=== PATIENT | female | born 1955 | race Caucasian/White ===

== ENCOUNTER 2023-12-25 08:49 | Emergency (ER) | payer MEDICARE ==
[~2023-12-25] VITALS: Ht 162.6 cm; Wt 82.5 kg
[2023-12-25 10:03] LABS: BASOPHILS % (AUTO) 0.2 % (0-1); EOSINOPHILS % (AUTO) 0.7 % (0-6); HEMATOCRIT 44.3 % (35.0-45.0); HEMOGLOBIN 14.4 g/dl (12.0-16.0); LYMPHOCYTES # (AUTO) 1.7 X10'3 (1.1-4.8); LYMPHOCYTES % (AUTO) 24.4 % (21-51); MEAN CORPUSCULAR HEMOGLOBIN 31.4 PG (27.0-31.0); MEAN CORPUSCULAR HGB CONC 32.5 g/dL (33.0-36.5); MEAN CORPUSCULAR VOLUME 96.5 FL (78-98); MEAN PLATELET VOLUME 7.6 FL (7.4-10.4); MONOCYTES # (AUTO) 0.6 X10'3 (0-0.9); MONOCYTES % (AUTO) 7.9 % (2-12); NEUTROPHILS # (AUTO) 4.7 X10'3 (1.8-7.7); NEUTROPHILS % (AUTO) 66.8 % (42-75); PLATELET COUNT 221 X10'3 (140-440); RED BLOOD COUNT 4.59 X10'6 (4.20-5.60); RED CELL DISTRIBUTION WIDTH 12.9 % (11.5-14.5)
[2023-12-25 10:26] LABS: ALANINE AMINOTRANSFERASE 27 U/L (12-78); ALBUMIN 3.8 G/DL (3.4-5.0); ALBUMIN/GLOBULIN RATIO 1.1 (1.1-1.5); ALKALINE PHOSPHATASE 180 IU/L (46-116); ANION GAP -4 (8-16); ASPARTATE AMINO TRANSFERASE 25 U/L (10-37); BILIRUBIN,TOTAL 0.4 MG/DL (0.1-1.0); BLOOD UREA NITROGEN 11 MG/DL (7-18); CALCIUM 9.4 MG/DL (8.5-10.1); CHLORIDE 101 MMOL/L (99-107); CREATININE 0.61 MG/DL (0.40-0.90); GLUCOSE 118 MG/DL (70-104); POTASSIUM 3.7 MMOL/L (3.5-5.1); PRO BRAIN NATRIURETIC PEPTIDE 281 PG/ML (0-125); SODIUM 144 MMOL/L (135-145); TOTAL PROTEIN 7.2 G/DL (6.4-8.2); eCRCL 74 ML/MIN; eGFR > 90 ML/MIN
[2023-12-25 10:33] LABS: TOTAL CARBON DIOXIDE 47.2 MMOL/L (24-32)
[2023-12-25] MEDS: furosemide 40mg/4ml inj IV ONE (11:35)
[2023-12-25] MEDS: diltiazem 5mg/ml 5ml inj. IV ONE ×2 (11:36→14:15)
[2023-12-25] MEDS ORDERED: FURO-150 PO (16:12)
[2023-12-25] MEDS ORDERED: CARSR60C PO (16:34)
[2023-12-25] MEDS ORDERED: ALBU18HF2 INH (16:36)
[2023-12-25 17:02] VITALS: BP 152/70; PULSE 118; RESP 28; TEMP 98.7; O2SAT 96
== END 2023-12-25 17:05 | disposition home or self-care (01) ==
LOC: ER 08:50
DX: I11.0 Hypertensive heart disease with heart failure (principal); I50.9 Heart failure, unspecified; J44.9 Chronic obstructive pulmonary disease, unspecified; Z88.8 Allergy status to other drugs, medicaments and biological substances; Z79.899 Other long term (current) drug therapy
CPT/HCPCS: 36415; 71045; 80053; 83880; 84484; 85025; 93005; 96374; 96375; 96376; 99285; C8929; J1940; J3490; 93306

== ENCOUNTER 2024-01-30 11:36 | Inpatient (IN) | payer MEDICARE ==
[~2024-01-30] VITALS: Ht 162.6 cm; Wt 86.4 kg
[~2024-01-30 11:36] MED LIST: ALBU18HF2 INH; FURO-150 PO
[2024-01-30] MEDS: normal saline 1000ml 1,000 ML IV ONE (12:23)
[2024-01-30 12:36] LABS: BASOPHILS % (AUTO) 0.3 % (0-1); EOSINOPHILS % (AUTO) 0.6 % (0-6); HEMATOCRIT 41.6 % (35.0-45.0); HEMOGLOBIN 13.6 g/dl (12.0-16.0); LYMPHOCYTES # (AUTO) 2.1 X10'3 (1.1-4.8); MEAN CORPUSCULAR HEMOGLOBIN 31.7 PG (27.0-31.0); MEAN CORPUSCULAR HGB CONC 32.6 g/dL (33.0-36.5); MEAN CORPUSCULAR VOLUME 97.2 FL (78-98); MEAN PLATELET VOLUME 7.9 FL (7.4-10.4); MONOCYTES # (AUTO) 0.6 X10'3 (0-0.9); MONOCYTES % (AUTO) 8.3 % (2-12); NEUTROPHILS # (AUTO) 4.8 X10'3 (1.8-7.7); NEUTROPHILS % (AUTO) 62.8 % (42-75); PLATELET COUNT 215 X10'3 (140-440); RED BLOOD COUNT 4.28 X10'6 (4.20-5.60); RED CELL DISTRIBUTION WIDTH 13.1 % (11.5-14.5); WHITE BLOOD COUNT 7.6 X10'3 (4.5-11.0)
[2024-01-30 12:50] LABS: ALANINE AMINOTRANSFERASE 25 U/L (12-78); ALBUMIN 3.8 G/DL (3.4-5.0); ALBUMIN/GLOBULIN RATIO 1.2 (1.1-1.5); ALKALINE PHOSPHATASE 180 IU/L (46-116); ASPARTATE AMINO TRANSFERASE 14 U/L (10-37); BILIRUBIN,TOTAL 0.4 MG/DL (0.1-1.0); BLOOD UREA NITROGEN 11 MG/DL (7-18); BUN/CREATININE RATIO 15.9 (10.0-20.0); CALCIUM 9.2 MG/DL (8.5-10.1); CHLORIDE 96 MMOL/L (99-107); CREATININE 0.69 MG/DL (0.40-0.90); GLUCOSE 123 MG/DL (70-104); POTASSIUM 3.9 MMOL/L (3.5-5.1); SODIUM 143 MMOL/L (135-145); TOTAL PROTEIN 7.1 G/DL (6.4-8.2); eCRCL 66 ML/MIN; eGFR 84 ML/MIN
[2024-01-30 12:52] LABS: ANION GAP -3 (8-16)
[2024-01-30 12:55] LABS: TOTAL CARBON DIOXIDE > 50 MMOL/L (24-32)
[2024-01-30 13:11] LABS: BILIRUBIN,URINE NEGATIVE (Neg); CLARITY,URINE CLEAR (Clear); COLOR,URINE YELLOW (Yellow); GLUCOSE, URINE NEGATIVE (Neg); KETONES,URINE NEGATIVE (Neg); LEUKOCYTE ESTERASE ,URINE NEGATIVE (Neg); NITRITES, URINE NEGATIVE (Neg); OCCULT BLOOD,URINE TRACE-INTACT (Neg); PH,URINE 7.5 (4.8-8.0); PROTEIN,URINE TRACE mg/dl (Neg)
[2024-01-30 13:15] LABS: UA COLLECTION TYPE STRAIGHT CATH
[2024-01-30 13:19] LABS: BACTERIA,URINE NONE SEEN /HPF (Neg); MUCUS STRANDS NONE SEEN /LPF (Neg); SQUAMOUS EPITHELIAL CELL,UR FEW /LPF (FEW); WBC,URINE 0-4 /HPF (0-4)
[2024-01-30 13:20] LABS: RENAL CELLS, URINE FEW /HPF
[2024-01-30 13:22] LABS: CREATINE KINASE 53 U/L (26-192)
[2024-01-30] MEDS ORDERED: magnesium hydroxide 30ml (MOM) UD suspension PO PRN (13:50)
[2024-01-30] MEDS ORDERED: potassium Cl 20 mEq SR tablet PO PRN ×2 (13:50)
[2024-01-30] MEDS ORDERED: magnesium sulf-water 2g/50mL 50 ML IV PRN (13:50)
[2024-01-30] MEDS ORDERED: mag hydrox/Alum hydrox/simeth 30ml oral suspension PO PRN (13:50)
[2024-01-30] MEDS ORDERED: potassium Cl 40MEQ/1/2NS 520ml 520 ML IV PRN (13:50)
[2024-01-30] MEDS ORDERED: magnesium sulf-water 4G/100mL 100 ML IV PRN (13:50)
[2024-01-30] MEDS ORDERED: ondansetron/PF 4mg/2ml inj IV PRN ×2 (13:50→17:10)
[2024-01-30 14:14] LABS: MAGNESIUM 2.1 MG/DL (1.5-2.4)
[2024-01-30 14:42] LABS: ABG BASE EXCESS 8.8 mmol/L (-2.0-3.0); ABG HCO3 39.4 mmol/L (21.0-28.0); ABG OXYGEN SATURATION 96.6 % (94.0-98.0); ABG PCO2 (T) 89.1 mmHg (32.0-45.0); ABG PH (T) 7.263 (7.350-7.450); ABG PO2 (T) 92.5 mmHg (83.0-108.0); FCOHb 0.1 % (0.5-1.5); FHHb 3.4 % (0.0-5.0); FLOW 4 L/min; FMetHb 0.1 % (0.0-1.5); FO2Hb 96.4 % (94.0-98.0); MODE NASAL CANNULA; TOTAL HEMOGLOBIN 13.5 G/dl (12.0-16.0)
[2024-01-30] MEDS: metoprolol tartrate 1mg/ml inj IV SCH (15:00)
[2024-01-30 15:04] VITALS: PULSE 110; RESP 21; O2SAT 95
[2024-01-30] MEDS: diltiazem 5mg/ml 5ml inj. IV ONE (15:15)
[2024-01-30] MEDS: methylPREDNISolone sod succ 125mg/2ml vial IV ONE (15:16)
[2024-01-30 16:27] LABS: D-DIMER 0.28 MG/L FEU (0-0.50)
[2024-01-30 16:52] LABS: ABG BASE EXCESS 14.6 mmol/L (-2.0-3.0); ABG HCO3 45.5 mmol/L (21.0-28.0); ABG OXYGEN SATURATION 91.6 % (94.0-98.0); ABG PH (T) 7.298 (7.350-7.450); ABG PO2 (T) 62.3 mmHg (83.0-108.0); ALLEN'S TEST POSITIVE; FCOHb 0.2 % (0.5-1.5); FHHb 8.4 % (0.0-5.0); FMetHb 0.1 % (0.0-1.5); FO2Hb 91.3 % (94.0-98.0); MODE MASK - BIPAP; TOTAL HEMOGLOBIN 13.3 G/dl (12.0-16.0)
[2024-01-30 17:05] VITALS: PULSE 89; RESP 27; O2SAT 98
[2024-01-30] MEDS ORDERED: HYDROcodone/acetaminophen 5mg/325mg tablet PO PRN (17:10)
[2024-01-30] MEDS ORDERED: nitroGLYCERIN 0.4mg SUBLingual tab SL PRN (17:10)
[2024-01-30] MEDS ORDERED: normal saline 1000ml 1,000 ML IV SCH (17:10)
[2024-01-30] MEDS ORDERED: HYDROcodone/acetaminophen 10/325mg tab PO PRN (17:10)
[2024-01-30] MEDS ORDERED: OXAZEpam 15mg capsule PO PRN (17:10)
[2024-01-30] MEDS ORDERED: proCHLORperazine 10 MG/2 ml inj IV PRN (17:10)
[2024-01-30] MEDS: LORazepam 2 mg/ml vial IV ONE (17:34)
[2024-01-30 18:09] LABS: ABG BASE EXCESS 15.3 mmol/L (-2.0-3.0); ABG HCO3 45.4 mmol/L (21.0-28.0); ABG OXYGEN SATURATION 96.1 % (94.0-98.0); ABG PCO2 (T) 87.7 mmHg (32.0-45.0); ABG PH (T) 7.332 (7.350-7.450); ABG PO2 (T) 78.8 mmHg (83.0-108.0); ALLEN'S TEST POSITIVE; FCOHb 0.3 % (0.5-1.5); FHHb 3.9 % (0.0-5.0); FMetHb 0.1 % (0.0-1.5); FO2Hb 95.7 % (94.0-98.0); MODE MASK - BIPAP; RESPIRATORY RATE 26 b/min; TOTAL HEMOGLOBIN 13.3 G/dl (12.0-16.0)
[2024-01-30] MEDS: normal saline 1000ml 1,000 ML IV SCH (18:13)
[2024-01-30 19:16] VITALS: PULSE 93; RESP 24; O2SAT 93
[2024-01-30] MEDS: docusate sod 100mg capsule PO SCH (20:00)
[2024-01-30] MEDS: K and/or MAG REPLACEMENT MC SCH (20:00)
[2024-01-30] MEDS: apixaban 5mg tablet PO SCH (20:32)
[2024-01-30] MEDS: heparin, porcine 5000 units/ml vial SQ SCH (20:33)
[2024-01-30 21:42] LABS: ABG BASE EXCESS 16.6 mmol/L (-2.0-3.0); ABG HCO3 47.9 mmol/L (21.0-28.0); ABG OXYGEN SATURATION 96.8 % (94.0-98.0); ABG PCO2 (T) 97.9 mmHg (32.0-45.0); ABG PH (T) 7.307 (7.350-7.450); ABG PO2 (T) 92.2 mmHg (83.0-108.0); ALLEN'S TEST Modified; FCOHb 0.2 % (0.5-1.5); FHHb 3.2 % (0.0-5.0); FO2Hb 96.6 % (94.0-98.0); MODE BiPAP; RESPIRATORY RATE 26 b/min; TOTAL HEMOGLOBIN 13.7 G/dl (12.0-16.0)
[2024-01-30 22:45] LABS: BILIRUBIN,TOTAL 0.3 MG/DL (0.1-1.0); BLOOD UREA NITROGEN 13 MG/DL (7-18); BUN/CREATININE RATIO 20.3 (10.0-20.0); CALCIUM 8.6 MG/DL (8.5-10.1); CHLORIDE 98 MMOL/L (99-107); CREATININE 0.64 MG/DL (0.40-0.90); GLUCOSE 151 MG/DL (70-104); POTASSIUM 4.3 MMOL/L (3.5-5.1); SODIUM 140 MMOL/L (135-145); eCRCL 71 ML/MIN; eGFR > 90 ML/MIN
[2024-01-30 22:46] LABS: ALANINE AMINOTRANSFERASE 23 U/L (12-78); ALBUMIN 3.2 G/DL (3.4-5.0); ALKALINE PHOSPHATASE 156 IU/L (46-116); ASPARTATE AMINO TRANSFERASE 15 U/L (10-37); TOTAL PROTEIN 6.3 G/DL (6.4-8.2)
[2024-01-30 22:54] LABS: ANION GAP -7 (8-16)
[2024-01-30 22:56] LABS: TOTAL CARBON DIOXIDE 48.8 MMOL/L (24-32)
[2024-01-30 23:00] VITALS: BP 117/69; PULSE 84; RESP 24; TEMP 97.2; O2SAT 95
[2024-01-30 23:27] VITALS: PULSE 66; RESP 24; O2SAT 95
[2024-01-31] VITALS (18 sets, daily range): BP systolic 106–149; BP diastolic 62–86; PULSE 69–160; RESP 15–32; TEMP 97.3–97.8; O2SAT 90–98
[2024-01-31 03:28] LABS: ABG BASE EXCESS 13.4 mmol/L (-2.0-3.0); ABG HCO3 43.1 mmol/L (21.0-28.0); ABG OXYGEN SATURATION 96.2 % (94.0-98.0); ABG PH (T) 7.328 (7.350-7.450); ABG PO2 (T) 89.7 mmHg (83.0-108.0); ALLEN'S TEST Modified; FCOHb 0.3 % (0.5-1.5); FHHb 3.8 % (0.0-5.0); FMetHb 0.3 % (0.0-1.5); FO2Hb 95.6 % (94.0-98.0); MODE BiPAP; RESPIRATORY RATE 14 b/min; TOTAL HEMOGLOBIN 13.1 G/dl (12.0-16.0)
[2024-01-31 06:56] LABS: BASOPHILS % (AUTO) 0.1 % (0-1); EOSINOPHILS % (AUTO) 0 % (0-6); HEMATOCRIT 38.2 % (35.0-45.0); HEMOGLOBIN 12.3 g/dl (12.0-16.0); LYMPHOCYTES # (AUTO) 1.1 X10'3 (1.1-4.8); LYMPHOCYTES % (AUTO) 20.3 % (21-51); MEAN CORPUSCULAR HGB CONC 32.1 g/dL (33.0-36.5); MEAN CORPUSCULAR VOLUME 96.4 FL (78-98); MEAN PLATELET VOLUME 8.4 FL (7.4-10.4); MONOCYTES # (AUTO) 0.3 X10'3 (0-0.9); MONOCYTES % (AUTO) 5.5 % (2-12); NEUTROPHILS # (AUTO) 3.9 X10'3 (1.8-7.7); NEUTROPHILS % (AUTO) 74.1 % (42-75); PLATELET COUNT 206 X10'3 (140-440); RED BLOOD COUNT 3.96 X10'6 (4.20-5.60); RED CELL DISTRIBUTION WIDTH 12.9 % (11.5-14.5); WHITE BLOOD COUNT 5.3 X10'3 (4.5-11.0)
[2024-01-31 07:23] LABS: ALANINE AMINOTRANSFERASE 18 U/L (12-78); ALBUMIN 3.1 G/DL (3.4-5.0); ALKALINE PHOSPHATASE 148 IU/L (46-116); ANION GAP -2 (8-16); ASPARTATE AMINO TRANSFERASE 16 U/L (10-37); BILIRUBIN,TOTAL 0.3 MG/DL (0.1-1.0); BLOOD UREA NITROGEN 15 MG/DL (7-18); BUN/CREATININE RATIO 26.3 (10.0-20.0); CALCIUM 8.8 MG/DL (8.5-10.1); CHLORIDE 98 MMOL/L (99-107); CREATININE 0.57 MG/DL (0.40-0.90); GLUCOSE 120 MG/DL (70-104); MAGNESIUM 2.3 MG/DL (1.5-2.4); POTASSIUM 4.3 MMOL/L (3.5-5.1); SODIUM 141 MMOL/L (135-145); TOTAL PROTEIN 6.1 G/DL (6.4-8.2); eCRCL 79 ML/MIN; eGFR > 90 ML/MIN
[2024-01-31 07:28] LABS: TOTAL CARBON DIOXIDE 44.5 MMOL/L (24-32)
[2024-01-31] MEDS: acetaminophen 325mg tablet PO PRN (08:01)
[2024-01-31] MEDS: methylPREDNISolone sod succ 125mg/2ml vial IV STA (08:05)
[2024-01-31] MEDS: methylPREDNISolone sod succ 125mg/2ml vial IV SCH (08:18)
[2024-01-31] MEDS: azithromycin/NS 500mg/250ml 250 ML IV SCH (08:20)
[2024-01-31] MEDS: CefTRIAXone 2gm/D5W 50ml BAG 50 ML IV SCH (10:38)
[2024-01-31] MEDS ORDERED: metoprolol tartrate 1mg/ml inj IV ONE (20:55)
[2024-02-01] VITALS (18 sets, daily range): BP systolic 101–149; BP diastolic 53–80; PULSE 60–166; RESP 18–27; TEMP 97.6–98; O2SAT 91–97
[2024-02-01 06:05] LABS: BASOPHILS % (AUTO) 0.2 % (0-1); EOSINOPHILS % (AUTO) 0.1 % (0-6); HEMOGLOBIN 11.8 g/dl (12.0-16.0); LYMPHOCYTES % (AUTO) 7.5 % (21-51); MEAN CORPUSCULAR HEMOGLOBIN 31.1 PG (27.0-31.0); MEAN CORPUSCULAR HGB CONC 31.9 g/dL (33.0-36.5); MEAN CORPUSCULAR VOLUME 97.4 FL (78-98); MEAN PLATELET VOLUME 8.1 FL (7.4-10.4); MONOCYTES # (AUTO) 0.5 X10'3 (0-0.9); MONOCYTES % (AUTO) 3.4 % (2-12); NEUTROPHILS # (AUTO) 11.9 X10'3 (1.8-7.7); NEUTROPHILS % (AUTO) 88.8 % (42-75); PLATELET COUNT 197 X10'3 (140-440); WHITE BLOOD COUNT 13.4 X10'3 (4.5-11.0)
[2024-02-01 06:32] LABS: ALANINE AMINOTRANSFERASE 22 U/L (12-78); ALKALINE PHOSPHATASE 137 IU/L (46-116); ANION GAP -1 (8-16); ASPARTATE AMINO TRANSFERASE 9 U/L (10-37); BILIRUBIN,TOTAL 0.2 MG/DL (0.1-1.0); BLOOD UREA NITROGEN 21 MG/DL (7-18); BUN/CREATININE RATIO 34.4 (10.0-20.0); CALCIUM 9.2 MG/DL (8.5-10.1); CHLORIDE 103 MMOL/L (99-107); CREATININE 0.61 MG/DL (0.40-0.90); GLUCOSE 142 MG/DL (70-104); MAGNESIUM 2.3 MG/DL (1.5-2.4); POTASSIUM 4.9 MMOL/L (3.5-5.1); SODIUM 142 MMOL/L (135-145); TOTAL PROTEIN 5.9 G/DL (6.4-8.2); eCRCL 74 ML/MIN; eGFR > 90 ML/MIN
[2024-02-01 06:39] LABS: TOTAL CARBON DIOXIDE 40.3 MMOL/L (24-32)
[2024-02-01] MEDS: morphine 2 MG/ML inj. syringe IV PRN ×2 (10:28→18:11)
[2024-02-01] MEDS: diltiazem 5mg/ml 5ml inj. IV ONE (14:15)
[2024-02-02] VITALS (21 sets, daily range): BP systolic 111–181; BP diastolic 62–107; PULSE 67–165; RESP 13–28; TEMP 96.8–97.9; O2SAT 90–96
[2024-02-02] MEDS: metoprolol tartrate 1mg/ml inj IV ONE (05:15)
[2024-02-02] MEDS: LORazepam 2 mg/ml vial IM PRN (06:23)
[2024-02-02 07:05] LABS: BASOPHILS % (AUTO) 0.1 % (0-1); EOSINOPHILS % (AUTO) 0 % (0-6); HEMATOCRIT 40.4 % (35.0-45.0); HEMOGLOBIN 12.6 g/dl (12.0-16.0); LYMPHOCYTES # (AUTO) 1.1 X10'3 (1.1-4.8); LYMPHOCYTES % (AUTO) 7.1 % (21-51); MEAN CORPUSCULAR HEMOGLOBIN 30.9 PG (27.0-31.0); MEAN CORPUSCULAR HGB CONC 31.2 g/dL (33.0-36.5); MEAN PLATELET VOLUME 8.4 FL (7.4-10.4); MONOCYTES # (AUTO) 0.8 X10'3 (0-0.9); MONOCYTES % (AUTO) 5.1 % (2-12); NEUTROPHILS # (AUTO) 13.9 X10'3 (1.8-7.7); NEUTROPHILS % (AUTO) 87.7 % (42-75); PLATELET COUNT 216 X10'3 (140-440); RED BLOOD COUNT 4.08 X10'6 (4.20-5.60); RED CELL DISTRIBUTION WIDTH 13.5 % (11.5-14.5); WHITE BLOOD COUNT 15.8 X10'3 (4.5-11.0)
[2024-02-02 07:31] LABS: ALANINE AMINOTRANSFERASE 26 U/L (12-78); ALBUMIN 3.2 G/DL (3.4-5.0); ALBUMIN/GLOBULIN RATIO 1.1 (1.1-1.5); ALKALINE PHOSPHATASE 143 IU/L (46-116); ANION GAP -1 (8-16); ASPARTATE AMINO TRANSFERASE 18 U/L (10-37); BILIRUBIN,TOTAL 0.2 MG/DL (0.1-1.0); BLOOD UREA NITROGEN 24 MG/DL (7-18); BUN/CREATININE RATIO 35.8 (10.0-20.0); CALCIUM 8.6 MG/DL (8.5-10.1); CHLORIDE 104 MMOL/L (99-107); CREATININE 0.67 MG/DL (0.40-0.90); GLUCOSE 142 MG/DL (70-104); MAGNESIUM 2.3 MG/DL (1.5-2.4); POTASSIUM 5.2 MMOL/L (3.5-5.1); SODIUM 144 MMOL/L (135-145); TOTAL PROTEIN 6.2 G/DL (6.4-8.2); eCRCL 67 ML/MIN; eGFR 87 ML/MIN
[2024-02-02 07:37] LABS: TOTAL CARBON DIOXIDE 41.2 MMOL/L (24-32)
[2024-02-02] MEDS: diltiazem 5mg/ml 5ml inj. IV ONE ×2 (16:20→20:00)
[2024-02-02 16:51] LABS: PRO BRAIN NATRIURETIC PEPTIDE 1790 PG/ML (0-125)
[2024-02-03] VITALS (17 sets, daily range): BP systolic 99–141; BP diastolic 62–107; PULSE 68–181; RESP 14–25; TEMP 98–98.7; O2SAT 93–98
[2024-02-03] MEDS: diltiazem-NS 100mg/100ml 100 ML IV SCH ×3 (01:41→11:39)
[2024-02-03 07:38] LABS: BASOPHILS % (AUTO) 0.3 % (0-1); EOSINOPHILS # (AUTO) 0.1 X10'3 (0-0.9); HEMATOCRIT 40.2 % (35.0-45.0); HEMOGLOBIN 12.7 g/dl (12.0-16.0); LYMPHOCYTES # (AUTO) 1.1 X10'3 (1.1-4.8); MEAN CORPUSCULAR HEMOGLOBIN 31.4 PG (27.0-31.0); MEAN CORPUSCULAR HGB CONC 31.6 g/dL (33.0-36.5); MEAN CORPUSCULAR VOLUME 99.2 FL (78-98); MEAN PLATELET VOLUME 9.2 FL (7.4-10.4); MONOCYTES # (AUTO) 0.5 X10'3 (0-0.9); MONOCYTES % (AUTO) 3.8 % (2-12); NEUTROPHILS # (AUTO) 10.5 X10'3 (1.8-7.7); NEUTROPHILS % (AUTO) 85.9 % (42-75); PLATELET COUNT 192 X10'3 (140-440); RED BLOOD COUNT 4.06 X10'6 (4.20-5.60); RED CELL DISTRIBUTION WIDTH 13.4 % (11.5-14.5); WHITE BLOOD COUNT 12.2 X10'3 (4.5-11.0)
[2024-02-03 08:07] LABS: ALANINE AMINOTRANSFERASE 28 U/L (12-78); ALBUMIN 3.2 G/DL (3.4-5.0); ALKALINE PHOSPHATASE 139 IU/L (46-116); ANION GAP 0 (8-16); BILIRUBIN,TOTAL 0.3 MG/DL (0.1-1.0); BLOOD UREA NITROGEN 29 MG/DL (7-18); BUN/CREATININE RATIO 43.3 (10.0-20.0); CALCIUM 8.7 MG/DL (8.5-10.1); CHLORIDE 105 MMOL/L (99-107); CREATININE 0.67 MG/DL (0.40-0.90); GLUCOSE 140 MG/DL (70-104); MAGNESIUM 2.5 MG/DL (1.5-2.4); SODIUM 145 MMOL/L (135-145); TOTAL CARBON DIOXIDE 39.8 MMOL/L (24-32); TOTAL PROTEIN 6.4 G/DL (6.4-8.2); eCRCL 67 ML/MIN; eGFR 87 ML/MIN
[2024-02-03 08:11] LABS: ASPARTATE AMINO TRANSFERASE 23 U/L (10-37); POTASSIUM 5.3 MMOL/L (3.5-5.1)
[2024-02-03] MEDS: ipratropium/albuterol 3ml nebule NEB PRN (08:14)
[2024-02-03] MEDS ORDERED: diltiazem 30mg tablet PO SCH (20:00)
[2024-02-04] MEDS ORDERED: DILTIAZEM (14:28)
[2024-02-04] MEDS ORDERED: APIX5TAB3 PO (14:28)
[2024-02-04] MEDS ORDERED: METH125V13 IV (14:28)
[2024-02-04] MEDS ORDERED: DOCU100C38 PO (14:28)
[2024-02-04] MEDS ORDERED: CEFT2VIA12 IV (14:28)
[2024-02-04] MEDS ORDERED: AZIT-164 PO (14:28)
[2024-02-04] MEDS ORDERED: [UNRECOGNIZED DRUG - CODE] IJ (16:05)
== END 2024-02-03 15:34 | DRG 280 ==
LOC: ER 11:37 → ED HOLD 13:53 → UNDOADMIN 13:53 → ED HOLD 19:24 → PCU 3S 22:34 → ED HOLD 22:34
PROVIDERS: ADMIT Nurse Practitioner Family; ATTEND Nurse Practitioner Family
PROC: 5A09357 Assistance with Respiratory Ventilation, Less than 24 Consecutive Hours, Continuous Positive Airway Pressure (ICD-10-PCS; principal; 2024-01-31)
PROC: 5A09357 Assistance with Respiratory Ventilation, Less than 24 Consecutive Hours, Continuous Positive Airway Pressure (ICD-10-PCS; 2024-02-01)
PROC: 5A09357 Assistance with Respiratory Ventilation, Less than 24 Consecutive Hours, Continuous Positive Airway Pressure (ICD-10-PCS; 2024-02-02)
DX: I11.0 Hypertensive heart disease with heart failure (principal); I50.23 Acute on chronic systolic (congestive) heart failure; I21.A1 Myocardial infarction type 2; J96.01 Acute respiratory failure with hypoxia; J44.1 Chronic obstructive pulmonary disease with (acute) exacerbation; E87.29 Other acidosis; I48.0 Paroxysmal atrial fibrillation; I27.20 Pulmonary hypertension, unspecified; Z87.891 Personal history of nicotine dependence; Z88.6 Allergy status to analgesic agent; Z79.899 Other long term (current) drug therapy
CPT/HCPCS: 36415; 36600; 70450; 71045; 71250; 73502; 80053; 81001; 82550; 82803; 83605; 83735; 83880; 84145; 84484; 85018; 85025; 85379; 87040; 87081; 93005; 94660; 94760; 96374; 96375; 97161; 97530; 99285; A4353; A4615; A4620; A6253; A6258; C1758; G0378; J0456; J0696; J1644; J2060; J2270; J2919; J3490; J7030

== ENCOUNTER 2024-02-04 08:40 | Inpatient (IN) | payer MEDICARE ==
[2024-02-04] VITALS (27 sets, daily range): BP systolic 90–126; BP diastolic 41–72; PULSE 61–154; RESP 18–26; O2SAT 89–100
[~2024-02-04] VITALS: Ht 162.6 cm; Wt 103.8 kg
[2024-02-04] MEDS: diltiazem-NS 100mg/100ml 100 ML IV SCH (08:50)
[2024-02-04] MEDS: fentaNYL/PF 50MCG/1 ML 2ML syringe IV ONE (09:12)
[2024-02-04 09:17] LABS: BASOPHILS % (AUTO) 0.2 % (0-1); EOSINOPHILS % (AUTO) 0 % (0-6); HEMATOCRIT 41.4 % (35.0-45.0); HEMOGLOBIN 12.9 g/dl (12.0-16.0); LYMPHOCYTES # (AUTO) 0.6 X10'3 (1.1-4.8); MEAN CORPUSCULAR HEMOGLOBIN 31.4 PG (27.0-31.0); MEAN CORPUSCULAR HGB CONC 31.1 g/dL (33.0-36.5); MEAN CORPUSCULAR VOLUME 100.9 FL (78-98); MEAN PLATELET VOLUME 8.7 FL (7.4-10.4); MONOCYTES # (AUTO) 0.6 X10'3 (0-0.9); MONOCYTES % (AUTO) 6.6 % (2-12); NEUTROPHILS # (AUTO) 8.5 X10'3 (1.8-7.7); NEUTROPHILS % (AUTO) 87.2 % (42-75); PLATELET COUNT 201 X10'3 (140-440); RED BLOOD COUNT 4.11 X10'6 (4.20-5.60); RED CELL DISTRIBUTION WIDTH 13.7 % (11.5-14.5); WHITE BLOOD COUNT 9.8 X10'3 (4.5-11.0)
[2024-02-04 09:19] LABS: ABG BASE EXCESS 8.3 mmol/L (-2.0-3.0); ABG OXYGEN SATURATION 99.5 % (94.0-98.0); ABG PH (T) 7.178 (7.350-7.450); ABG PO2 (T) 333.9 mmHg (83.0-108.0); ALLEN'S TEST POSITIVE; FCOHb 0.3 % (0.5-1.5); FHHb 0.5 % (0.0-5.0); FMetHb 0.1 % (0.0-1.5); FO2Hb 99.1 % (94.0-98.0); MODE VENT - AC/PRVC; PEEP 5 cm H2O; RESPIRATORY RATE 22 b/min; TIDAL VOLUME 300 mL; TOTAL HEMOGLOBIN 13.6 G/dl (12.0-16.0)
[2024-02-04] MEDS: albuterol 2.5 MG/3 ML nebule NEB PRN (09:29)
[2024-02-04] MEDS: FENTANYL-0.9 % NACL/PF 100 ML IV SCH (09:34)
[2024-02-04] MEDS: normal saline 1000ML IV soln IVB ONE (09:36)
[2024-02-04 09:38] LABS: ALANINE AMINOTRANSFERASE 33 U/L (12-78); ALBUMIN 3.4 G/DL (3.4-5.0); ALBUMIN/GLOBULIN RATIO 1.1 (1.1-1.5); ALKALINE PHOSPHATASE 141 IU/L (46-116); ANION GAP 0 (8-16); ASPARTATE AMINO TRANSFERASE 16 U/L (10-37); BILIRUBIN,TOTAL 0.3 MG/DL (0.1-1.0); BLOOD UREA NITROGEN 36 MG/DL (7-18); CALCIUM 9.1 MG/DL (8.5-10.1); CHLORIDE 104 MMOL/L (99-107); CREATININE 1.06 MG/DL (0.40-0.90); GLUCOSE 176 MG/DL (70-104); MAGNESIUM 2.9 MG/DL (1.5-2.4); PHOSPHORUS 5.6 MG/DL (2.3-4.5); PRO BRAIN NATRIURETIC PEPTIDE 1714 PG/ML (0-125); SODIUM 148 MMOL/L (135-145); TOTAL PROTEIN 6.6 G/DL (6.4-8.2); eCRCL 43 ML/MIN; eGFR 51 ML/MIN
[2024-02-04 09:41] LABS: POTASSIUM 5.7 MMOL/L (3.5-5.1)
[2024-02-04 10:24] LABS: BILIRUBIN,URINE NEGATIVE (Neg); CLARITY,URINE CLEAR (Clear); COLOR,URINE YELLOW (Yellow); GLUCOSE, URINE NEGATIVE (Neg); KETONES,URINE NEGATIVE (Neg); LEUKOCYTE ESTERASE ,URINE NEGATIVE (Neg); NITRITES, URINE NEGATIVE (Neg); OCCULT BLOOD,URINE SMALL (Neg); PROTEIN,URINE 30 mg/dl (Neg); UROBILINOGEN,URINE 0.2 E.U/dL (0.2-1.0)
[2024-02-04 10:33] LABS: UA COLLECTION TYPE FOLEY CATH
[2024-02-04 10:36] LABS: SQUAMOUS EPITHELIAL CELL,UR NONE SEEN /LPF (FEW)
[2024-02-04 10:37] LABS: BACTERIA,URINE FEW /HPF (Neg); RBC,URINE 0-2 /HPF (0-2)
[2024-02-04] MEDS: methylPREDNISolone sod succ 125mg/2ml vial IV ONE (12:28)
[2024-02-04] MEDS ORDERED: methylPREDNISolone sod succ/PF 40mg inj. IV SCH (14:00)
[2024-02-04] MEDS ORDERED: methylPREDNISolone sod succ 125mg/2ml vial IV SCH (14:18)
[2024-02-04] MEDS ORDERED: METH125V13 IV (14:28)
[2024-02-04] MEDS ORDERED: APIX5TAB3 PO (14:28)
[2024-02-04] MEDS ORDERED: CEFT2VIA12 IV (14:28)
[2024-02-04] MEDS ORDERED: AZIT-164 PO (14:28)
[2024-02-04] MEDS ORDERED: DILTIAZEM (14:28)
[2024-02-04] MEDS ORDERED: DOCU100C38 PO (14:28)
[2024-02-04] MEDS: ipratropium/albuterol 3ml nebule NEB SCH (15:18)
[2024-02-04 15:36] LABS: ABG BASE EXCESS 13.7 mmol/L (-2.0-3.0); ABG HCO3 39.3 mmol/L (21.0-28.0); ABG OXYGEN SATURATION 91.5 % (94.0-98.0); ABG PCO2 (T) 56.5 mmHg (32.0-45.0); ABG PH (T) 7.464 (7.350-7.450); ABG PO2 (T) 55.8 mmHg (83.0-108.0); ALLEN'S TEST POSITIVE; FCOHb 0.3 % (0.5-1.5); FHHb 8.4 % (0.0-5.0); FMetHb 0.3 % (0.0-1.5); MODE VENT - AC/PRVC; PEEP 5 cm H2O; RESPIRATORY RATE 26 b/min; TIDAL VOLUME 300 mL; TOTAL HEMOGLOBIN 12.3 G/dl (12.0-16.0)
[2024-02-04] MEDS ORDERED: ondansetron/PF 4mg/2ml inj IV PRN (15:40)
[2024-02-04] MEDS ORDERED: mag hydrox/Alum hydrox/simeth 30ml oral suspension PO PRN (15:40)
[2024-02-04] MEDS ORDERED: potassium Cl 20 mEq SR tablet PO PRN ×2 (15:40)
[2024-02-04] MEDS ORDERED: magnesium hydroxide 30ml (MOM) UD suspension PO PRN (15:40)
[2024-02-04] MEDS ORDERED: acetaminophen 325mg tablet PO PRN (15:40)
[2024-02-04] MEDS ORDERED: magnesium Cl slow-release 64mg tablet PO PRN (15:40)
[2024-02-04] MEDS: LidoCAINE 2% Topical Jelly 11mL syringe (UROJET) TOP ONE (15:59)
[2024-02-04] MEDS ORDERED: [UNRECOGNIZED DRUG - CODE] IJ (16:05)
[2024-02-04] MEDS: heparin, porcine 5000 units/ml vial SQ SCH (16:06)
[2024-02-04] MEDS: diltiazem 5mg/ml 5ml inj. IV ONE (18:04)
[2024-02-04] MEDS: piperacillin/tazo 3.375gm/50ml 50 ML IV SCH (20:00)
[2024-02-04] MEDS: docusate sod 100mg capsule PO SCH (20:00)
[2024-02-04] MEDS: vancomycin/NS 1 GM ADD-VANTAGE 250 ML IV SCH (20:22)
[2024-02-04] MEDS: methylPREDNISolone sod succ 125mg/2ml vial IV SCH (20:35)
[2024-02-05] VITALS (42 sets, daily range): BP systolic 92–161; BP diastolic 46–73; PULSE 75–145; RESP 16–19; O2SAT 89–95
[2024-02-05 03:27] LABS: ABG BASE EXCESS 16.3 mmol/L (-2.0-3.0); ABG HCO3 41.3 mmol/L (21.0-28.0); ABG OXYGEN SATURATION 90.5 % (94.0-98.0); ABG PCO2 (T) 52.9 mmHg (32.0-45.0); ABG PH (T) 7.513 (7.350-7.450); ABG PO2 (T) 53.2 mmHg (83.0-108.0); ALLEN'S TEST Modified; FCOHb 0.2 % (0.5-1.5); FHHb 9.5 % (0.0-5.0); FMetHb 0.3 % (0.0-1.5); MODE ac/prvc; PATIENT TEMPERATURE 37.9; PEEP 5 cm H2O; RESPIRATORY RATE 18 b/min; TIDAL VOLUME 400 mL
[2024-02-05 05:02] LABS: BASOPHILS % (AUTO) 0.1 % (0-1); EOSINOPHILS % (AUTO) 0 % (0-6); HEMATOCRIT 34.9 % (35.0-45.0); HEMOGLOBIN 11.3 g/dl (12.0-16.0); LYMPHOCYTES # (AUTO) 0.7 X10'3 (1.1-4.8); LYMPHOCYTES % (AUTO) 9.9 % (21-51); MEAN CORPUSCULAR HEMOGLOBIN 31.5 PG (27.0-31.0); MEAN CORPUSCULAR HGB CONC 32.3 g/dL (33.0-36.5); MEAN CORPUSCULAR VOLUME 97.5 FL (78-98); MEAN PLATELET VOLUME 8.7 FL (7.4-10.4); MONOCYTES # (AUTO) 0.4 X10'3 (0-0.9); MONOCYTES % (AUTO) 5.6 % (2-12); NEUTROPHILS # (AUTO) 6.4 X10'3 (1.8-7.7); NEUTROPHILS % (AUTO) 84.4 % (42-75); PLATELET COUNT 157 X10'3 (140-440); RED BLOOD COUNT 3.58 X10'6 (4.20-5.60); RED CELL DISTRIBUTION WIDTH 13.1 % (11.5-14.5); WHITE BLOOD COUNT 7.6 X10'3 (4.5-11.0)
[2024-02-05 05:13] LABS: APTT 25 SECONDS (22-32); INR 1.2 INR; PROTHROMBIN TIME 12.1 SECONDS (9.0-12.0)
[2024-02-05 05:16] LABS: ALANINE AMINOTRANSFERASE 29 U/L (12-78); ALBUMIN 2.9 G/DL (3.4-5.0); ALBUMIN/GLOBULIN RATIO 1.2 (1.1-1.5); ALKALINE PHOSPHATASE 105 IU/L (46-116); ANION GAP 1 (8-16); ASPARTATE AMINO TRANSFERASE 14 U/L (10-37); BILIRUBIN,TOTAL 0.5 MG/DL (0.1-1.0); BLOOD UREA NITROGEN 39 MG/DL (7-18); BUN/CREATININE RATIO 40.2 (10.0-20.0); CALCIUM 8.6 MG/DL (8.5-10.1); CHLORIDE 108 MMOL/L (99-107); CREATININE 0.97 MG/DL (0.40-0.90); GLUCOSE 157 MG/DL (70-104); MAGNESIUM 2.5 MG/DL (1.5-2.4); POTASSIUM 3.6 MMOL/L (3.5-5.1); SODIUM 151 MMOL/L (135-145); TOTAL PROTEIN 5.4 G/DL (6.4-8.2); eCRCL 47 ML/MIN; eGFR 57 ML/MIN
[2024-02-05 05:18] LABS: TOTAL CARBON DIOXIDE 42.5 MMOL/L (24-32)
[2024-02-05] MEDS: pantoprazole 40 MG vial IV SCH (07:34)
[2024-02-05 10:44] LABS: ABG BASE EXCESS 10.1 mmol/L (-2.0-3.0); ABG HCO3 37.2 mmol/L (21.0-28.0); ABG OXYGEN SATURATION 92.8 % (94.0-98.0); ABG PO2 (T) 69.2 mmHg (83.0-108.0); ALLEN'S TEST POSITIVE; FCOHb 0.2 % (0.5-1.5); FHHb 7.2 % (0.0-5.0); FMetHb 0.3 % (0.0-1.5); FO2Hb 92.3 % (94.0-98.0); MODE PRVC; PATIENT TEMPERATURE 37.9; PEEP 5 cm H2O; RESPIRATORY RATE 16 b/min; TIDAL VOLUME 300 mL; TOTAL HEMOGLOBIN 12.5 G/dl (12.0-16.0)
[2024-02-05] MEDS: digoxin 250mcg/ml 2ml ampule IV ONE ×2 (10:45→17:28)
[2024-02-05] MEDS ORDERED: acetaminophen 325mg tablet OGT PRN (11:28)
[2024-02-05] MEDS ORDERED: magnesium hydroxide 30ml (MOM) UD suspension OGT PRN (11:30)
[2024-02-05] MEDS ORDERED: mag hydrox/Alum hydrox/simeth 30ml oral suspension OGT PRN (11:30)
[2024-02-05] MEDS ORDERED: DEXTROSE 15 GM of carb/4 tabs (each vial/BOTTLE has 4 tablets) PO PRN ×2 (13:30)
[2024-02-05] MEDS ORDERED: glucagon, human recombinant 1mg kit SUBCUT PRN (13:30)
[2024-02-05] MEDS ORDERED: dextrose 50%-water 50ml dispensing syringe IV PRN ×2 (13:30)
[2024-02-05] MEDS ORDERED: INSULIN LISPRO 100 UNIT/ML INSULN.PEN MULTI-DOSE SQ SCH ×2 (17:00→20:00)
[2024-02-05] MEDS: docusate sodium 100mg/10ml UD cup PO SCH (21:18)
[2024-02-06] VITALS (42 sets, daily range): BP systolic 129–183; BP diastolic 61–86; PULSE 90–116; RESP 16–17; O2SAT 89–94
[2024-02-06] MEDS: insulin regular, human U-100 10ml vial - multi-dose SQ SCH (02:23)
[2024-02-06 02:48] LABS: BASOPHILS % (AUTO) 0.1 % (0-1); EOSINOPHILS % (AUTO) 0 % (0-6); HEMATOCRIT 35.2 % (35.0-45.0); HEMOGLOBIN 11.2 g/dl (12.0-16.0); LYMPHOCYTES # (AUTO) 0.5 X10'3 (1.1-4.8); LYMPHOCYTES % (AUTO) 3.4 % (21-51); MEAN CORPUSCULAR HEMOGLOBIN 31.7 PG (27.0-31.0); MEAN CORPUSCULAR HGB CONC 31.9 g/dL (33.0-36.5); MEAN CORPUSCULAR VOLUME 99.4 FL (78-98); MEAN PLATELET VOLUME 8.4 FL (7.4-10.4); MONOCYTES # (AUTO) 0.5 X10'3 (0-0.9); MONOCYTES % (AUTO) 3.6 % (2-12); NEUTROPHILS # (AUTO) 12.7 X10'3 (1.8-7.7); NEUTROPHILS % (AUTO) 92.9 % (42-75); PLATELET COUNT 147 X10'3 (140-440); RED BLOOD COUNT 3.54 X10'6 (4.20-5.60); RED CELL DISTRIBUTION WIDTH 13.6 % (11.5-14.5); WHITE BLOOD COUNT 13.7 X10'3 (4.5-11.0)
[2024-02-06 03:01] LABS: ALANINE AMINOTRANSFERASE 83 U/L (12-78); ALBUMIN 2.7 G/DL (3.4-5.0); ALKALINE PHOSPHATASE 94 IU/L (46-116); ANION GAP 1 (8-16); ASPARTATE AMINO TRANSFERASE 58 U/L (10-37); BILIRUBIN,TOTAL 0.5 MG/DL (0.1-1.0); BLOOD UREA NITROGEN 32 MG/DL (7-18); BUN/CREATININE RATIO 35.2 (10.0-20.0); CALCIUM 8.1 MG/DL (8.5-10.1); CHLORIDE 107 MMOL/L (99-107); CREATININE 0.91 MG/DL (0.40-0.90); GLUCOSE 173 MG/DL (70-104); MAGNESIUM 2.2 MG/DL (1.5-2.4); POTASSIUM 3.7 MMOL/L (3.5-5.1); SODIUM 151 MMOL/L (135-145); TOTAL PROTEIN 5.5 G/DL (6.4-8.2); eCRCL 50 ML/MIN; eGFR 61 ML/MIN
[2024-02-06 03:09] LABS: TOTAL CARBON DIOXIDE 43.4 MMOL/L (24-32)
[2024-02-06 03:24] LABS: ABG HCO3 43.9 mmol/L (21.0-28.0); ABG OXYGEN SATURATION 93.5 % (94.0-98.0); ABG PCO2 (T) 79.8 mmHg (32.0-45.0); ABG PO2 (T) 69.2 mmHg (83.0-108.0); ALLEN'S TEST Modified; FCOHb 0.1 % (0.5-1.5); FHHb 6.5 % (0.0-5.0); FMetHb 0.3 % (0.0-1.5); FO2Hb 93.1 % (94.0-98.0); MODE ac/prvc; PATIENT TEMPERATURE 37.4; PEEP 5 cm H2O; RESPIRATORY RATE 16 b/min; TIDAL VOLUME 300 mL; TOTAL HEMOGLOBIN 12.5 G/dl (12.0-16.0)
[2024-02-06 03:26] LABS: APTT 25 SECONDS (22-32); INR 1.2 INR; PROTHROMBIN TIME 12.2 SECONDS (9.0-12.0)
[2024-02-06] MEDS: digoxin 250mcg/ml 2ml ampule IV ONE (05:12)
[2024-02-06] MEDS: VANCOMYCIN LEVEL IV ONE (07:30)
[2024-02-06] MEDS: VANCOMYCIN 1GM 200ML H20 (PEG) 200 ML IV SCH (08:37)
[2024-02-06] MEDS: digoxin 250mcg (0.25mg) tablet PO ONE (12:05)
[2024-02-06] MEDS ORDERED: DEXTROSE 15 GM of carb/4 tabs (each vial/BOTTLE has 4 tablets) NG PRN ×2 (13:10→13:11)
[2024-02-06] MEDS: diltiazem 30mg tablet NG SCH (13:11)
[2024-02-06] MEDS ORDERED: mag hydrox/Alum hydrox/simeth 30ml oral suspension NG PRN (13:12)
[2024-02-06] MEDS ORDERED: POTASSIUM CHLORIDE 20 MEQ/15 ML oral solution NG PRN ×2 (13:13→13:14)
[2024-02-06] MEDS ORDERED: digoxin 125mcg (0.125mg) tablet PO ONE (13:15)
[2024-02-06] MEDS: diltiazem 30mg tablet PO ONE (13:33)
[2024-02-06] MEDS: digoxin 125mcg (0.125mg) tablet NG ONE (13:33)
[2024-02-06] MEDS: propofol 1000mg/100ml bottle 100 ML IV SCH (19:46)
[2024-02-06] MEDS: docusate sodium 100mg/10ml UD cup NG SCH (20:08)
[2024-02-07] VITALS (42 sets, daily range): BP systolic 128–210; BP diastolic 57–93; PULSE 90–149; RESP 15–24; O2SAT 87–95
[2024-02-07 02:19] LABS: BASOPHILS % (AUTO) 0.1 % (0-1); EOSINOPHILS % (AUTO) 0.1 % (0-6); HEMATOCRIT 35.5 % (35.0-45.0); LYMPHOCYTES # (AUTO) 0.7 X10'3 (1.1-4.8); LYMPHOCYTES % (AUTO) 4.2 % (21-51); MEAN CORPUSCULAR HEMOGLOBIN 30.5 PG (27.0-31.0); MEAN CORPUSCULAR HGB CONC 30.9 g/dL (33.0-36.5); MEAN CORPUSCULAR VOLUME 98.7 FL (78-98); MEAN PLATELET VOLUME 8.6 FL (7.4-10.4); MONOCYTES # (AUTO) 0.5 X10'3 (0-0.9); MONOCYTES % (AUTO) 3.2 % (2-12); NEUTROPHILS % (AUTO) 92.4 % (42-75); PLATELET COUNT 143 X10'3 (140-440); RED BLOOD COUNT 3.59 X10'6 (4.20-5.60); RED CELL DISTRIBUTION WIDTH 13.3 % (11.5-14.5); WHITE BLOOD COUNT 16.2 X10'3 (4.5-11.0)
[2024-02-07 02:30] LABS: ALANINE AMINOTRANSFERASE 142 U/L (12-78); ALBUMIN 2.4 G/DL (3.4-5.0); ALBUMIN/GLOBULIN RATIO 0.9 (1.1-1.5); ALKALINE PHOSPHATASE 88 IU/L (46-116); ANION GAP -3 (8-16); ASPARTATE AMINO TRANSFERASE 54 U/L (10-37); BILIRUBIN,TOTAL 0.4 MG/DL (0.1-1.0); BLOOD UREA NITROGEN 27 MG/DL (7-18); BUN/CREATININE RATIO 34.6 (10.0-20.0); CALCIUM 8.3 MG/DL (8.5-10.1); CHLORIDE 108 MMOL/L (99-107); CREATININE 0.78 MG/DL (0.40-0.90); GLUCOSE 198 MG/DL (70-104); MAGNESIUM 2.3 MG/DL (1.5-2.4); SODIUM 150 MMOL/L (135-145); TRIGLYCERIDES 180 MG/DL (20-135); eCRCL 58 ML/MIN; eGFR 73 ML/MIN
[2024-02-07 02:56] LABS: TOTAL CARBON DIOXIDE 44.8 MMOL/L (24-32)
[2024-02-07 03:12] LABS: APTT 23 SECONDS (22-32); INR 1.1 INR; PROTHROMBIN TIME 11.2 SECONDS (9.0-12.0)
[2024-02-07 03:24] LABS: ABG BASE EXCESS 11.4 mmol/L (-2.0-3.0); ABG HCO3 40.9 mmol/L (21.0-28.0); ABG PCO2 (T) 84.1 mmHg (32.0-45.0); ABG PH (T) 7.307 (7.350-7.450); ABG PO2 (T) 70.7 mmHg (83.0-108.0); ALLEN'S TEST Modified; FCOHb 0.2 % (0.5-1.5); FMetHb 0.3 % (0.0-1.5); FO2Hb 92.5 % (94.0-98.0); MODE prvc; PATIENT TEMPERATURE 37.4; PEEP 5 cm H2O; RESPIRATORY RATE 16 b/min; TIDAL VOLUME 300 mL; TOTAL HEMOGLOBIN 12.7 G/dl (12.0-16.0)
[2024-02-07] MEDS: magnesium hydroxide 30ml (MOM) UD suspension NG PRN (08:20)
[2024-02-07] MEDS: digoxin 125mcg (0.125mg) tablet NG SCH (08:21)
[2024-02-07] MEDS: metoprolol tartrate 1mg/ml inj IV ONE (11:19)
[2024-02-07] MEDS: metoprolol tartrate 50mg tablet PO SCH (14:00)
[2024-02-07] MEDS: metoprolol tartrate 50mg tablet PO STA (14:02)
[2024-02-07] MEDS: furosemide 40mg/4ml inj IV ONE (15:20)
[2024-02-07] MEDS: insulin regular, human U-100 10ml vial - multi-dose SQ SCH (16:45)
[2024-02-07] MEDS: furosemide 20 MG/2 ML vial IV SCH (17:14)
[2024-02-07 17:41] LABS: MAGNESIUM 2.4 MG/DL (1.5-2.4); POTASSIUM 3.9 MMOL/L (3.5-5.1)
[2024-02-07] MEDS: minoxidil 2.5mg tablet PO SCH (17:46)
[2024-02-07] MEDS ORDERED: metoprolol tartrate 1mg/ml inj IV SCH (18:00)
[2024-02-07] MEDS: apixaban 5mg tablet PO SCH (20:10)
[2024-02-07] MEDS ORDERED: magnesium Cl slow-release 64mg tablet PO PRN (22:30)
[2024-02-07] MEDS ORDERED: fentaNYL/PF 50MCG/1 ML 2ML syringe IV PRN (22:30)
[2024-02-07] MEDS ORDERED: potassium Cl 20 mEq SR tablet PO PRN ×2 (22:30)
[2024-02-07] MEDS ORDERED: magnesium sulf-water 4G/100mL 100 ML IV PRN (22:30)
[2024-02-07] MEDS ORDERED: potassium Cl 40MEQ/1/2NS 520ml 520 ML IV PRN (22:30)
[2024-02-07] MEDS ORDERED: magnesium sulf-water 2g/50mL 50 ML IV PRN (22:30)
[2024-02-08] VITALS (32 sets, daily range): BP systolic 113–162; BP diastolic 54–85; PULSE 71–129; RESP 16–28; TEMP 96–98.5; O2SAT 88–96
[2024-02-08] MEDS: acetaminophen 325mg tablet NG PRN (02:20)
[2024-02-08 03:44] LABS: BASOPHILS % (AUTO) 0.1 % (0-1); EOSINOPHILS % (AUTO) 0 % (0-6); HEMATOCRIT 39.7 % (35.0-45.0); HEMOGLOBIN 12.7 g/dl (12.0-16.0); LYMPHOCYTES # (AUTO) 1.2 X10'3 (1.1-4.8); LYMPHOCYTES % (AUTO) 6.5 % (21-51); MEAN CORPUSCULAR HEMOGLOBIN 31.1 PG (27.0-31.0); MEAN PLATELET VOLUME 8.6 FL (7.4-10.4); MONOCYTES # (AUTO) 0.7 X10'3 (0-0.9); MONOCYTES % (AUTO) 4.2 % (2-12); NEUTROPHILS % (AUTO) 89.2 % (42-75); PLATELET COUNT 149 X10'3 (140-440); RED BLOOD COUNT 4.09 X10'6 (4.20-5.60); RED CELL DISTRIBUTION WIDTH 13.1 % (11.5-14.5)
[2024-02-08 03:54] LABS: ALANINE AMINOTRANSFERASE 160 U/L (12-78); ALBUMIN 2.7 G/DL (3.4-5.0); ALKALINE PHOSPHATASE 92 IU/L (46-116); ASPARTATE AMINO TRANSFERASE 56 U/L (10-37); BILIRUBIN,TOTAL 0.8 MG/DL (0.1-1.0); BLOOD UREA NITROGEN 28 MG/DL (7-18); BUN/CREATININE RATIO 34.1 (10.0-20.0); CALCIUM 8.2 MG/DL (8.5-10.1); CHLORIDE 97 MMOL/L (99-107); CREATININE 0.82 MG/DL (0.40-0.90); GLUCOSE 148 MG/DL (70-104); MAGNESIUM 2.1 MG/DL (1.5-2.4); POTASSIUM 3.5 MMOL/L (3.5-5.1); SODIUM 145 MMOL/L (135-145); TOTAL PROTEIN 5.5 G/DL (6.4-8.2); eCRCL 55 ML/MIN; eGFR 69 ML/MIN
[2024-02-08 03:55] LABS: ANION GAP -1 (8-16)
[2024-02-08 04:15] LABS: TOTAL CARBON DIOXIDE 48.8 MMOL/L (24-32)
[2024-02-08 04:26] LABS: INR 1.1 INR; PROTHROMBIN TIME 11.3 SECONDS (9.0-12.0)
[2024-02-08] MEDS: VANCOMYCIN LEVEL IV ONE (07:30)
[2024-02-08] MEDS: K and/or MAG REPLACEMENT MC SCH (08:00)
[2024-02-08 08:31] LABS: ABG BASE EXCESS 21.5 mmol/L (-2.0-3.0); ABG HCO3 48.9 mmol/L (21.0-28.0); ABG OXYGEN SATURATION 86.6 % (94.0-98.0); ABG PCO2 (T) 65.5 mmHg (32.0-45.0); ABG PH (T) 7.491 (7.350-7.450); ABG PO2 (T) 49.3 mmHg (83.0-108.0); ALLEN'S TEST POSITIVE; FCOHb 0.8 % (0.5-1.5); FHHb 13.3 % (0.0-5.0); FLOW 5 L/min; FMetHb 0.3 % (0.0-1.5); FO2Hb 85.6 % (94.0-98.0); MODE NASAL CANNULA; PATIENT TEMPERATURE 37.1; TOTAL HEMOGLOBIN 13.9 G/dl (12.0-16.0)
[2024-02-08] MEDS: amiodarone 150mg/dext, iso-os 100 ML IV ONE ×2 (09:10→09:40)
[2024-02-08] MEDS: amiodarone/D5 360MG/200ML BAG 200 ML IV SCH (09:31)
[2024-02-08] MEDS: budesonide 0.5mg/2ml UD nebule IH SCH (19:32)
[2024-02-08] MEDS: amiodarone 200mg tablet PO SCH (19:52)
[2024-02-09] VITALS (9 sets, daily range): BP systolic 115–132; BP diastolic 62–89; PULSE 80–101; RESP 18–22; TEMP 97.6–98.5; O2SAT 94–95
[2024-02-09 06:56] LABS: INR 1.1 INR; PROTHROMBIN TIME 11.4 SECONDS (9.0-12.0)
[2024-02-09 07:22] LABS: BASOPHILS % (AUTO) 0.1 % (0-1); EOSINOPHILS % (AUTO) 0 % (0-6); HEMATOCRIT 39.8 % (35.0-45.0); HEMOGLOBIN 12.7 g/dl (12.0-16.0); LYMPHOCYTES # (AUTO) 1.4 X10'3 (1.1-4.8); LYMPHOCYTES % (AUTO) 8.7 % (21-51); MEAN CORPUSCULAR HEMOGLOBIN 30.7 PG (27.0-31.0); MEAN PLATELET VOLUME 8.8 FL (7.4-10.4); MONOCYTES # (AUTO) 1.3 X10'3 (0-0.9); MONOCYTES % (AUTO) 8.3 % (2-12); NEUTROPHILS # (AUTO) 13.1 X10'3 (1.8-7.7); NEUTROPHILS % (AUTO) 82.9 % (42-75); PLATELET COUNT 148 X10'3 (140-440); RED BLOOD COUNT 4.14 X10'6 (4.20-5.60); RED CELL DISTRIBUTION WIDTH 12.8 % (11.5-14.5); WHITE BLOOD COUNT 15.9 X10'3 (4.5-11.0)
[2024-02-09 07:40] LABS: ALANINE AMINOTRANSFERASE 128 U/L (12-78); ALBUMIN 2.6 G/DL (3.4-5.0); ALKALINE PHOSPHATASE 88 IU/L (46-116); ASPARTATE AMINO TRANSFERASE 34 U/L (10-37); BILIRUBIN,TOTAL 0.6 MG/DL (0.1-1.0); BLOOD UREA NITROGEN 32 MG/DL (7-18); CALCIUM 8.4 MG/DL (8.5-10.1); CHLORIDE 97 MMOL/L (99-107); CREATININE 0.64 MG/DL (0.40-0.90); GLUCOSE 129 MG/DL (70-104); MAGNESIUM 2.3 MG/DL (1.5-2.4); POTASSIUM 3.1 MMOL/L (3.5-5.1); SODIUM 145 MMOL/L (135-145); TOTAL PROTEIN 5.3 G/DL (6.4-8.2); eCRCL 71 ML/MIN; eGFR > 90 ML/MIN
[2024-02-09 07:42] LABS: PLATELET ESTIMATE NORMAL; TOTAL CELLS COUNTED 100
[2024-02-09 07:43] LABS: HYPOCHROMASIA 1+; POLYCHROMASIA FEW; STOMATOCYTES 1+; TOXIC GRANULATION 1+; TOXIC VACUOLATION FEW
[2024-02-09 07:49] LABS: ANION GAP 0 (8-16)
[2024-02-09] MEDS: metolazone 2.5mg tablet PO SCH (07:57)
[2024-02-09] MEDS: acetaminophen 325mg tablet PO PRN (07:59)
[2024-02-09 08:00] LABS: TOTAL CARBON DIOXIDE 47.9 MMOL/L (24-32)
[2024-02-09] MEDS ORDERED: lactose-reduced food (Ensure Enlive) - 237ml bottle PO SCH (17:30)
== END 2024-02-09 14:00 | DRG 871 ==
LOC: ER 08:40 → ED HOLD 15:55 → EDBEDREQ 16:15 → CICU 2S 17:05 → PCU 3S 02-08 15:33
PROVIDERS: ADMIT Internal Medicine Critical Care Medicine; ATTEND Internal Medicine Critical Care Medicine
PROC: 5A1945Z Respiratory Ventilation, 24-96 Consecutive Hours (ICD-10-PCS; principal; 2024-02-04)
PROC: 5A0935A Assistance with Respiratory Ventilation, Less than 24 Consecutive Hours, High Flow/Velocity Cannula (ICD-10-PCS; 2024-02-07)
PROC: 5A09357 Assistance with Respiratory Ventilation, Less than 24 Consecutive Hours, Continuous Positive Airway Pressure (ICD-10-PCS; 2024-02-07)
PROC: 5A0935A Assistance with Respiratory Ventilation, Less than 24 Consecutive Hours, High Flow/Velocity Cannula (ICD-10-PCS; 2024-02-08)
DX: A41.9 Sepsis, unspecified organism (principal); I21.A1 Myocardial infarction type 2; I50.23 Acute on chronic systolic (congestive) heart failure; J96.21 Acute and chronic respiratory failure with hypoxia; J96.22 Acute and chronic respiratory failure with hypercapnia; J18.9 Pneumonia, unspecified organism; J44.1 Chronic obstructive pulmonary disease with (acute) exacerbation; E87.29 Other acidosis; E87.0 Hyperosmolality and hypernatremia; E66.2 Morbid (severe) obesity with alveolar hypoventilation; G93.40 Encephalopathy, unspecified; J44.0 Chronic obstructive pulmonary disease with (acute) lower respiratory infection; N17.9 Acute kidney failure, unspecified; R73.9 Hyperglycemia, unspecified; I49.3 Ventricular premature depolarization; T38.0X5A Adverse effect of glucocorticoids and synthetic analogues, initial encounter; D64.9 Anemia, unspecified; I48.0 Paroxysmal atrial fibrillation; Z88.6 Allergy status to analgesic agent; Z79.01 Long term (current) use of anticoagulants; Z79.899 Other long term (current) drug therapy; Z87.891 Personal history of nicotine dependence; Z82.49 Family history of ischemic heart disease and other diseases of the circulatory system; Z82.5 Family history of asthma and other chronic lower respiratory diseases; Z99.81 Dependence on supplemental oxygen; Y92.89 Other specified places as the place of occurrence of the external cause; Z68.39 Body mass index [BMI] 39.0-39.9, adult
CPT/HCPCS: 36410; 36415; 36600; 71045; 74018; 76937; 80053; 80202; 81001; 82803; 82948; 83036; 83605; 83735; 83880; 84100; 84132; 84145; 84478; 84484; 85007; 85018; 85025; 85610; 85730; 87040; 87070; 87081; 87088; 92508; 92616; 93005; 93308; 94002; 94003; 94640; 94660; 94664; 94760; 99285; A4615; A4620; A6196; A6212; A6213; A6446; A6449; A7015; C1758; G0378; J0282; J1160; J1644; J1815; J1940; J2470; J2543; J2704; J2919; J3010; J3370; J3490; J7030

== ENCOUNTER 2024-05-25 13:33 | Inpatient (IN) | payer MEDICARE ==
[~2024-05-25] VITALS: Ht 162.6 cm; Wt 100.0 kg
[~2024-05-25 13:33] MED LIST changes: -ALBU18HF2 INH; +APIX5TAB3 PO; +AZIT-164 PO; +CEFT2VIA12 IV; +DOCU100C38 PO; +METH125V13 IV; +[UNRECOGNIZED DRUG - CODE] IJ
[2024-05-25 14:26] LABS: BASOPHILS % (AUTO) 0.5 % (0-1); EOSINOPHILS % (AUTO) 0.3 % (0-6); HEMATOCRIT 41.3 % (35.0-45.0); HEMOGLOBIN 13.5 g/dl (12.0-16.0); LYMPHOCYTES # (AUTO) 1.5 X10'3 (1.1-4.8); LYMPHOCYTES % (AUTO) 24.9 % (21-51); MEAN CORPUSCULAR HEMOGLOBIN 31.2 PG (27.0-31.0); MEAN CORPUSCULAR HGB CONC 32.7 g/dL (33.0-36.5); MEAN CORPUSCULAR VOLUME 95.3 FL (78-98); MEAN PLATELET VOLUME 8.3 FL (7.4-10.4); MONOCYTES # (AUTO) 0.5 X10'3 (0-0.9); NEUTROPHILS % (AUTO) 66.3 % (42-75); PLATELET COUNT 218 X10'3 (140-440); RED BLOOD COUNT 4.33 X10'6 (4.20-5.60); RED CELL DISTRIBUTION WIDTH 13.9 % (11.5-14.5); WHITE BLOOD COUNT 6.1 X10'3 (4.5-11.0)
[2024-05-25 14:56] LABS: ALBUMIN 3.6 G/DL (3.4-5.0); BLOOD UREA NITROGEN 13 MG/DL (7-18); BUN/CREATININE RATIO 21.7 (10.0-20.0); CALCIUM 9.3 MG/DL (8.5-10.1); CHLORIDE 98 MMOL/L (99-107); GLUCOSE 145 MG/DL (70-104); MAGNESIUM 2.1 MG/DL (1.5-2.4); PRO BRAIN NATRIURETIC PEPTIDE 554 PG/ML (0-125); SODIUM 148 MMOL/L (135-145); eCRCL 74 ML/MIN; eGFR > 90 ML/MIN
[2024-05-25] MEDS: diltiazem 5mg/ml 5ml inj. IV ONE (15:04)
[2024-05-25 15:08] LABS: ANION GAP 0 (8-16)
[2024-05-25] MEDS: diltiazem 30mg tablet PO ONE ×2 (15:08→19:54)
[2024-05-25 15:09] LABS: TOTAL CARBON DIOXIDE > 50 MMOL/L (24-32)
[2024-05-25 18:51] LABS: ALBUMIN 3.5 G/DL (3.4-5.0); BLOOD UREA NITROGEN 11 MG/DL (7-18); CALCIUM 9.2 MG/DL (8.5-10.1); CHLORIDE 98 MMOL/L (99-107); CREATININE 0.61 MG/DL (0.40-0.90); GLUCOSE 117 MG/DL (70-104); SODIUM 144 MMOL/L (135-145); eCRCL 73 ML/MIN; eGFR > 90 ML/MIN
[2024-05-25 19:21] LABS: ANION GAP -4 (8-16); POTASSIUM 4.4 MMOL/L (3.5-5.1)
[2024-05-25] MEDS ORDERED: diltiazem 5mg/ml 5ml inj. IV ONE (19:30)
[2024-05-25 19:44] LABS: TOTAL CARBON DIOXIDE > 50 MMOL/L (24-32)
[2024-05-25] MEDS: methylPREDNISolone sod succ 125mg/2ml vial IV ONE (19:55)
[2024-05-25 20:14] LABS: ABG BASE EXCESS 24.8 mmol/L (-2.0-3.0); ABG OXYGEN SATURATION 89.2 % (94.0-98.0); ABG PCO2 (T) 133.3 mmHg (32.0-45.0); ABG PH (T) 7.263 (7.350-7.450); ABG PO2 (T) 58.4 mmHg (83.0-108.0); ALLEN'S TEST Modified; FCOHb 0.3 % (0.5-1.5); FHHb 10.8 % (0.0-5.0); FLOW 3 L/min; FMetHb 0.1 % (0.0-1.5); FO2Hb 88.8 % (94.0-98.0); MODE NASAL CANNULA; PATIENT TEMPERATURE 36.8; RESPIRATORY RATE 20 b/min; TOTAL HEMOGLOBIN 13.3 G/dl (12.0-16.0)
[2024-05-25 20:25] VITALS: PULSE 115; RESP 26; O2SAT 95
[2024-05-25] MEDS: ipratropium/albuterol 3ml nebule NEB ONE (20:34)
[2024-05-25 20:35] VITALS: PULSE 115; RESP 24; O2SAT 95
[2024-05-25 20:39] VITALS: PULSE 97; RESP 24; O2SAT 97
[2024-05-25] MEDS ORDERED: magnesium sulf-water 4G/100mL 100 ML IV PRN (22:55)
[2024-05-25] MEDS ORDERED: acetaminophen 325mg tablet PO PRN (22:55)
[2024-05-25] MEDS ORDERED: magnesium hydroxide 30ml (MOM) UD suspension PO PRN (22:55)
[2024-05-25] MEDS ORDERED: magnesium sulf-water 2g/50mL 50 ML IV PRN (22:55)
[2024-05-25] MEDS ORDERED: magnesium Cl slow-release 64mg tablet PO PRN (22:55)
[2024-05-25] MEDS ORDERED: potassium Cl 40MEQ/1/2NS 520ml 520 ML IV PRN (22:55)
[2024-05-25] MEDS ORDERED: potassium Cl 20 mEq SR tablet PO PRN ×2 (22:55)
[2024-05-25] MEDS ORDERED: mag hydrox/Alum hydrox/simeth 30ml oral suspension PO PRN (22:55)
[2024-05-25] MEDS ORDERED: ondansetron/PF 4mg/2ml inj IV PRN (22:55)
[2024-05-25 23:26] VITALS: PULSE 109; RESP 27; O2SAT 95
[2024-05-25 23:42] LABS: ABG BASE EXCESS 21.9 mmol/L (-2.0-3.0); ABG OXYGEN SATURATION 93.7 % (94.0-98.0); ABG PH (T) 7.279 (7.350-7.450); ABG PO2 (T) 69.6 mmHg (83.0-108.0); ALLEN'S TEST Modified; FCOHb 0.5 % (0.5-1.5); FHHb 6.3 % (0.0-5.0); FO2Hb 93.2 % (94.0-98.0); MODE BiPAP; RESPIRATORY RATE 18 b/min; TOTAL HEMOGLOBIN 13.4 G/dl (12.0-16.0)
[2024-05-26] VITALS (22 sets, daily range): BP systolic 131–186; BP diastolic 58–99; PULSE 66–133; RESP 16–36; TEMP 96.7–98.4; O2SAT 87–97
[2024-05-26] MEDS ORDERED: ipratropium/albuterol 3ml nebule NEB PRN (03:35)
[2024-05-26 04:05] LABS: BASOPHILS % (AUTO) 0.1 % (0-1); EOSINOPHILS % (AUTO) 0 % (0-6); HEMATOCRIT 38.5 % (35.0-45.0); HEMOGLOBIN 12.3 g/dl (12.0-16.0); LYMPHOCYTES # (AUTO) 0.6 X10'3 (1.1-4.8); LYMPHOCYTES % (AUTO) 9.6 % (21-51); MEAN CORPUSCULAR HEMOGLOBIN 30.5 PG (27.0-31.0); MEAN CORPUSCULAR VOLUME 95.5 FL (78-98); MEAN PLATELET VOLUME 8.3 FL (7.4-10.4); MONOCYTES % (AUTO) 0.8 % (2-12); NEUTROPHILS # (AUTO) 5.3 X10'3 (1.8-7.7); NEUTROPHILS % (AUTO) 89.5 % (42-75); PLATELET COUNT 194 X10'3 (140-440); RED BLOOD COUNT 4.04 X10'6 (4.20-5.60); RED CELL DISTRIBUTION WIDTH 13.8 % (11.5-14.5)
[2024-05-26] MEDS: methylPREDNISolone sod succ 125mg/2ml vial IV ONE (04:15)
[2024-05-26 04:21] LABS: ALANINE AMINOTRANSFERASE 25 U/L (12-78); ALBUMIN 3.4 G/DL (3.4-5.0); ALBUMIN/GLOBULIN RATIO 0.9 (1.1-1.5); ALKALINE PHOSPHATASE 89 IU/L (46-116); ASPARTATE AMINO TRANSFERASE 21 U/L (10-37); BILIRUBIN,TOTAL 0.3 MG/DL (0.1-1.0); BLOOD UREA NITROGEN 17 MG/DL (7-18); BUN/CREATININE RATIO 21.8 (10.0-20.0); CALCIUM 9.6 MG/DL (8.5-10.1); CHLORIDE 99 MMOL/L (99-107); CREATININE 0.78 MG/DL (0.40-0.90); GLUCOSE 164 MG/DL (70-104); MAGNESIUM 1.9 MG/DL (1.5-2.4); POTASSIUM 3.9 MMOL/L (3.5-5.1); SODIUM 145 MMOL/L (135-145); eCRCL 57 ML/MIN; eGFR 73 ML/MIN
[2024-05-26 04:30] LABS: ANION GAP -3 (8-16); HEMOGLOBIN A1C 5.5 % (4.5-6.2)
[2024-05-26 04:32] LABS: TOTAL CARBON DIOXIDE 48.7 MMOL/L (24-32)
[2024-05-26 07:05] LABS: ABG BASE EXCESS 17.9 mmol/L (-2.0-3.0); ABG HCO3 48.2 mmol/L (21.0-28.0); ABG PCO2 (T) 88.9 mmHg (32.0-45.0); ABG PH (T) 7.352 (7.350-7.450); ABG PO2 (T) 83.2 mmHg (83.0-108.0); ALLEN'S TEST POSITIVE; FCOHb 0.3 % (0.5-1.5); FMetHb 0.2 % (0.0-1.5); FO2Hb 95.5 % (94.0-98.0); MODE MASK - BIPAP; RESPIRATORY RATE 18 b/min; TIDAL VOLUME 368 mL; TOTAL HEMOGLOBIN 13.5 G/dl (12.0-16.0)
[2024-05-26] MEDS: ipratropium/albuterol 3ml nebule NEB SCH (07:10)
[2024-05-26] MEDS: K and/or MAG REPLACEMENT MC SCH (08:00)
[2024-05-26] MEDS ORDERED: methylPREDNISolone sod succ/PF 40mg inj. IV SCH (08:00)
[2024-05-26] MEDS ORDERED: heparin, porcine 5000 units/ml vial SQ SCH (08:00)
[2024-05-26] MEDS: methylPREDNISolone sod succ/PF 40mg inj. IV SCH (08:39)
[2024-05-26] MEDS: metoprolol succinate 25mg (24-HOUR) SR. Tablet PO SCH (08:40)
[2024-05-26] MEDS: docusate sod 100mg capsule PO SCH (08:40)
[2024-05-26] MEDS: apixaban 5mg tablet PO SCH (08:40)
[2024-05-26] MEDS: azithromycin 250mg tablet PO SCH (08:40)
[2024-05-26] MEDS: lactobacillus rhamnosus 10,000 MMU CELLS/CAPSULE PO SCH (08:40)
[2024-05-26] MEDS: metoprolol tartrate 1mg/ml inj IV ONE (10:18)
[2024-05-26] MEDS: amiodarone 200mg tablet PO ONE (10:52)
[2024-05-26] MEDS: CefTRIAXone/D5W-Rocephin 1gm 50 ML IV SCH (10:53)
[2024-05-26] MEDS: metoprolol tartrate 50mg tablet PO SCH (14:29)
[2024-05-26] MEDS ORDERED: albuterol 2.5 MG/3 ML nebule NEB PRN (14:30)
[2024-05-26] MEDS: amiodarone 200mg tablet PO SCH (19:24)
[2024-05-26] MEDS: nystatin 15 GM powder TP SCH (22:18)
[2024-05-27] VITALS (20 sets, daily range): BP systolic 96–122; BP diastolic 51–81; PULSE 69–158; RESP 12–27; TEMP 96.8–97.5; O2SAT 88–95
[2024-05-27 07:36] LABS: BASOPHILS % (AUTO) 0 % (0-1); EOSINOPHILS % (AUTO) 0 % (0-6); HEMATOCRIT 37.8 % (35.0-45.0); HEMOGLOBIN 12.4 g/dl (12.0-16.0); LYMPHOCYTES # (AUTO) 1.2 X10'3 (1.1-4.8); LYMPHOCYTES % (AUTO) 10.1 % (21-51); MEAN CORPUSCULAR HEMOGLOBIN 30.9 PG (27.0-31.0); MEAN CORPUSCULAR HGB CONC 32.7 g/dL (33.0-36.5); MEAN CORPUSCULAR VOLUME 94.5 FL (78-98); MEAN PLATELET VOLUME 8.7 FL (7.4-10.4); MONOCYTES # (AUTO) 0.8 X10'3 (0-0.9); MONOCYTES % (AUTO) 6.5 % (2-12); NEUTROPHILS # (AUTO) 9.9 X10'3 (1.8-7.7); NEUTROPHILS % (AUTO) 83.4 % (42-75); PLATELET COUNT 232 X10'3 (140-440); RED BLOOD COUNT 3.99 X10'6 (4.20-5.60); RED CELL DISTRIBUTION WIDTH 13.8 % (11.5-14.5); WHITE BLOOD COUNT 11.9 X10'3 (4.5-11.0)
[2024-05-27 07:56] LABS: ALANINE AMINOTRANSFERASE 21 U/L (12-78); ALBUMIN 3.4 G/DL (3.4-5.0); ALBUMIN/GLOBULIN RATIO 1.1 (1.1-1.5); ALKALINE PHOSPHATASE 84 IU/L (46-116); ASPARTATE AMINO TRANSFERASE 17 U/L (10-37); BILIRUBIN,TOTAL 0.3 MG/DL (0.1-1.0); BLOOD UREA NITROGEN 28 MG/DL (7-18); BUN/CREATININE RATIO 38.4 (10.0-20.0); CALCIUM 10.1 MG/DL (8.5-10.1); CHLORIDE 99 MMOL/L (99-107); CREATININE 0.73 MG/DL (0.40-0.90); GLUCOSE 121 MG/DL (70-104); MAGNESIUM 2.2 MG/DL (1.5-2.4); POTASSIUM 3.8 MMOL/L (3.5-5.1); SODIUM 146 MMOL/L (135-145); TOTAL PROTEIN 6.5 G/DL (6.4-8.2); eCRCL 61 ML/MIN; eGFR 79 ML/MIN
[2024-05-27] MEDS: normal saline 1000ml 1,000 ML IV SCH (08:43)
[2024-05-27 08:47] LABS: ABG HCO3 49.7 mmol/L (21.0-28.0); ABG OXYGEN SATURATION 95.4 % (94.0-98.0); ABG PH (T) 7.427 (7.350-7.450); ABG PO2 (T) 77.8 mmHg (83.0-108.0); ALLEN'S TEST POSITIVE; FCOHb 0.4 % (0.5-1.5); FHHb 4.6 % (0.0-5.0); FLOW 3 L/min; FMetHb 0.3 % (0.0-1.5); FO2Hb 94.7 % (94.0-98.0); MODE NASAL CANNULA; PATIENT TEMPERATURE 36.9; TOTAL HEMOGLOBIN 12.8 G/dl (12.0-16.0)
[2024-05-27 08:54] LABS: ANION GAP 0 (8-16)
[2024-05-27 08:58] LABS: TOTAL CARBON DIOXIDE 47.3 MMOL/L (24-32)
[2024-05-27] MEDS: HYDROcodone/acetaminophen 5mg/325mg tablet PO ONE (23:18)
[2024-05-28] VITALS (24 sets, daily range): BP systolic 105–124; BP diastolic 34–75; PULSE 61–104; RESP 14–31; TEMP 96.7–98; O2SAT 90–97
[2024-05-28 07:12] LABS: HEMATOCRIT 32.7 % (35.0-45.0); HEMOGLOBIN 10.7 g/dl (12.0-16.0); MEAN CORPUSCULAR HEMOGLOBIN 31.2 PG (27.0-31.0); MEAN CORPUSCULAR HGB CONC 32.8 g/dL (33.0-36.5); PLATELET COUNT 177 X10'3 (140-440); RED BLOOD COUNT 3.44 X10'6 (4.20-5.60); RED CELL DISTRIBUTION WIDTH 14.1 % (11.5-14.5); WHITE BLOOD COUNT 11.9 X10'3 (4.5-11.0)
[2024-05-28 07:13] LABS: BASOPHILS % (AUTO) 0 % (0-1); EOSINOPHILS % (AUTO) 0 % (0-6); LYMPHOCYTES # (AUTO) 1.2 X10'3 (1.1-4.8); LYMPHOCYTES % (AUTO) 9.7 % (21-51); MEAN PLATELET VOLUME 8.6 FL (7.4-10.4); MONOCYTES # (AUTO) 0.4 X10'3 (0-0.9); MONOCYTES % (AUTO) 3.6 % (2-12); NEUTROPHILS # (AUTO) 10.3 X10'3 (1.8-7.7); NEUTROPHILS % (AUTO) 86.7 % (42-75)
[2024-05-28 07:46] LABS: ALANINE AMINOTRANSFERASE 22 U/L (12-78); ALBUMIN 2.9 G/DL (3.4-5.0); ALBUMIN/GLOBULIN RATIO 1.1 (1.1-1.5); ALKALINE PHOSPHATASE 66 IU/L (46-116); ANION GAP 1 (8-16); ASPARTATE AMINO TRANSFERASE 15 U/L (10-37); BILIRUBIN,TOTAL 0.3 MG/DL (0.1-1.0); BLOOD UREA NITROGEN 33 MG/DL (7-18); CALCIUM 8.7 MG/DL (8.5-10.1); CHLORIDE 99 MMOL/L (99-107); CREATININE 0.75 MG/DL (0.40-0.90); GLUCOSE 150 MG/DL (70-104); POTASSIUM 3.6 MMOL/L (3.5-5.1); SODIUM 143 MMOL/L (135-145); TOTAL PROTEIN 5.6 G/DL (6.4-8.2); eCRCL 59 ML/MIN; eGFR 76 ML/MIN
[2024-05-28 08:00] LABS: TOTAL CARBON DIOXIDE 42.7 MMOL/L (24-32)
[2024-05-28] MEDS: potassium Cl 20 mEq SR tablet PO STA (10:12)
[2024-05-28] MEDS: acetaminophen 325mg tablet PO PRN (10:13)
[2024-05-29] VITALS (21 sets, daily range): BP systolic 112–132; BP diastolic 57–81; PULSE 60–99; RESP 14–27; TEMP 97.3–97.7; O2SAT 87–96
[2024-05-29 07:04] LABS: BASOPHILS % (AUTO) 0.1 % (0-1); EOSINOPHILS % (AUTO) 0 % (0-6); HEMATOCRIT 32.9 % (35.0-45.0); HEMOGLOBIN 10.9 g/dl (12.0-16.0); LYMPHOCYTES # (AUTO) 0.9 X10'3 (1.1-4.8); MEAN CORPUSCULAR HEMOGLOBIN 31.4 PG (27.0-31.0); MEAN CORPUSCULAR VOLUME 95.1 FL (78-98); MONOCYTES # (AUTO) 0.5 X10'3 (0-0.9); MONOCYTES % (AUTO) 5.2 % (2-12); NEUTROPHILS % (AUTO) 84.7 % (42-75); PLATELET COUNT 174 X10'3 (140-440); RED BLOOD COUNT 3.46 X10'6 (4.20-5.60); WHITE BLOOD COUNT 9.4 X10'3 (4.5-11.0)
[2024-05-29 07:19] LABS: ALANINE AMINOTRANSFERASE 39 U/L (12-78); ALBUMIN 2.9 G/DL (3.4-5.0); ALBUMIN/GLOBULIN RATIO 1.1 (1.1-1.5); ALKALINE PHOSPHATASE 63 IU/L (46-116); ANION GAP 1 (8-16); ASPARTATE AMINO TRANSFERASE 20 U/L (10-37); BILIRUBIN,TOTAL 0.2 MG/DL (0.1-1.0); BLOOD UREA NITROGEN 26 MG/DL (7-18); CALCIUM 8.5 MG/DL (8.5-10.1); CHLORIDE 104 MMOL/L (99-107); CREATININE 0.51 MG/DL (0.40-0.90); GLUCOSE 119 MG/DL (70-104); MAGNESIUM 2.3 MG/DL (1.5-2.4); POTASSIUM 4.6 MMOL/L (3.5-5.1); SODIUM 145 MMOL/L (135-145); TOTAL PROTEIN 5.5 G/DL (6.4-8.2); eCRCL 87 ML/MIN; eGFR > 90 ML/MIN
[2024-05-29 07:25] LABS: TOTAL CARBON DIOXIDE 40.5 MMOL/L (24-32)
[2024-05-29] MEDS ORDERED: LIDOcaine/PRILOcaine 5gm cream TP PRN (14:45)
[2024-05-29] MEDS: HYDROcodone/acetaminophen 5mg/325mg tablet PO PRN (21:45)
[2024-05-30] VITALS (25 sets, daily range): BP systolic 118–131; BP diastolic 48–62; PULSE 58–97; RESP 12–34; TEMP 97.2–98.2; O2SAT 79–99
[2024-05-30 07:33] LABS: BASOPHILS % (AUTO) 0.1 % (0-1); EOSINOPHILS % (AUTO) 0 % (0-6); HEMATOCRIT 36.1 % (35.0-45.0); HEMOGLOBIN 11.7 g/dl (12.0-16.0); LYMPHOCYTES # (AUTO) 1.1 X10'3 (1.1-4.8); LYMPHOCYTES % (AUTO) 10.6 % (21-51); MEAN CORPUSCULAR HGB CONC 32.3 g/dL (33.0-36.5); MEAN CORPUSCULAR VOLUME 96.1 FL (78-98); MEAN PLATELET VOLUME 9.1 FL (7.4-10.4); MONOCYTES # (AUTO) 0.7 X10'3 (0-0.9); NEUTROPHILS # (AUTO) 8.5 X10'3 (1.8-7.7); NEUTROPHILS % (AUTO) 82.3 % (42-75); PLATELET COUNT 180 X10'3 (140-440); RED BLOOD COUNT 3.75 X10'6 (4.20-5.60); RED CELL DISTRIBUTION WIDTH 14.1 % (11.5-14.5); WHITE BLOOD COUNT 10.3 X10'3 (4.5-11.0)
[2024-05-30 08:21] LABS: ALANINE AMINOTRANSFERASE 60 U/L (12-78); ALKALINE PHOSPHATASE 71 IU/L (46-116); ANION GAP -1 (8-16); ASPARTATE AMINO TRANSFERASE 28 U/L (10-37); BILIRUBIN,TOTAL 0.2 MG/DL (0.1-1.0); BLOOD UREA NITROGEN 25 MG/DL (7-18); BUN/CREATININE RATIO 39.7 (10.0-20.0); CALCIUM 8.5 MG/DL (8.5-10.1); CHLORIDE 104 MMOL/L (99-107); CREATININE 0.63 MG/DL (0.40-0.90); GLUCOSE 132 MG/DL (70-104); POTASSIUM 5.3 MMOL/L (3.5-5.1); SODIUM 140 MMOL/L (135-145); TOTAL CARBON DIOXIDE 37.3 MMOL/L (24-32); TOTAL PROTEIN 6.1 G/DL (6.4-8.2); eCRCL 71 ML/MIN; eGFR > 90 ML/MIN
[2024-05-30] MEDS: metoprolol succinate 25mg (24-HOUR) SR. Tablet PO SCH (08:56)
[2024-05-30 09:41] LABS: PRO BRAIN NATRIURETIC PEPTIDE 2207 PG/ML (0-125)
[2024-05-30] MEDS ORDERED: iohexol 300mg/ml 100ml inj. ONE (13:20)
[2024-05-30] MEDS: acetaZOLAMIDE 250mg tablet PO SCH (16:16)
[2024-05-30] MEDS: furosemide 40mg/4ml inj IV ONE (16:16)
[2024-05-30] MEDS: furosemide 20 MG/2 ML vial IV SCH (20:18)
[2024-05-31] VITALS (11 sets, daily range): BP systolic 96–126; BP diastolic 51–94; PULSE 48–116; RESP 16–22; TEMP 96.7–98.7; O2SAT 93–98
[2024-05-31 07:10] LABS: BASOPHILS % (AUTO) 0.3 % (0-1); EOSINOPHILS % (AUTO) 0.1 % (0-6); HEMATOCRIT 34.7 % (35.0-45.0); HEMOGLOBIN 11.3 g/dl (12.0-16.0); LYMPHOCYTES % (AUTO) 10.3 % (21-51); MEAN CORPUSCULAR HGB CONC 32.5 g/dL (33.0-36.5); MEAN CORPUSCULAR VOLUME 95.5 FL (78-98); MEAN PLATELET VOLUME 9.1 FL (7.4-10.4); MONOCYTES # (AUTO) 0.5 X10'3 (0-0.9); MONOCYTES % (AUTO) 5.2 % (2-12); NEUTROPHILS # (AUTO) 7.9 X10'3 (1.8-7.7); NEUTROPHILS % (AUTO) 84.1 % (42-75); PLATELET COUNT 175 X10'3 (140-440); RED BLOOD COUNT 3.63 X10'6 (4.20-5.60); RED CELL DISTRIBUTION WIDTH 13.9 % (11.5-14.5); WHITE BLOOD COUNT 9.4 X10'3 (4.5-11.0)
[2024-05-31 07:33] LABS: ALANINE AMINOTRANSFERASE 54 U/L (12-78); ALBUMIN 2.8 G/DL (3.4-5.0); ALKALINE PHOSPHATASE 69 IU/L (46-116); ANION GAP -1 (8-16); ASPARTATE AMINO TRANSFERASE 21 U/L (10-37); BILIRUBIN,TOTAL 0.2 MG/DL (0.1-1.0); BLOOD UREA NITROGEN 24 MG/DL (7-18); BUN/CREATININE RATIO 32.4 (10.0-20.0); CALCIUM 8.7 MG/DL (8.5-10.1); CHLORIDE 101 MMOL/L (99-107); CREATININE 0.74 MG/DL (0.40-0.90); GLUCOSE 118 MG/DL (70-104); POTASSIUM 4.6 MMOL/L (3.5-5.1); SODIUM 140 MMOL/L (135-145); TOTAL CARBON DIOXIDE 39.7 MMOL/L (24-32); TOTAL PROTEIN 5.7 G/DL (6.4-8.2); eCRCL 60 ML/MIN; eGFR 77 ML/MIN
[2024-05-31 08:25] LABS: TOTAL CELLS COUNTED 100
[2024-05-31 08:26] LABS: PLATELET ESTIMATE NORMAL
[2024-05-31 08:27] LABS: ANISOCYTOSIS 1+
[2024-05-31] MEDS ORDERED: PRED20TA PO (09:00)
[2024-05-31] MEDS ORDERED: ACET250T29 PO (09:00)
[2024-05-31] MEDS ORDERED: FURO-150 PO (09:00)
[2024-05-31] MEDS ORDERED: APIX5TAB3 PO (09:00)
[2024-05-31] MEDS ORDERED: AMI200T PO (09:00)
[2024-05-31] MEDS ORDERED: IPRA4AER IH (09:00)
[2024-05-31] MEDS ORDERED: METO100T7 PO (09:00)
[2024-05-31] MEDS ORDERED: CEFD300C3 PO (10:26)
[2024-05-31] MEDS ORDERED: ALBU2.5V7 NEB (10:28)
[2024-05-31] MEDS ORDERED: ALBU90AE INH (10:28)
== END 2024-05-31 14:24 | disposition home health service (06) | DRG 291 ==
LOC: ER 13:33 → UNDOADMIN 22:58 → ED HOLD 22:58 → PCU 3S 05-26 07:56
PROVIDERS: ADMIT Specialist; ATTEND Family Medicine
PROC: 5A09357 Assistance with Respiratory Ventilation, Less than 24 Consecutive Hours, Continuous Positive Airway Pressure (ICD-10-PCS; 2024-05-25)
PROC: 5A09357 Assistance with Respiratory Ventilation, Less than 24 Consecutive Hours, Continuous Positive Airway Pressure (ICD-10-PCS; principal; 2024-05-26)
PROC: 5A09357 Assistance with Respiratory Ventilation, Less than 24 Consecutive Hours, Continuous Positive Airway Pressure (ICD-10-PCS; 2024-05-27)
PROC: 5A09357 Assistance with Respiratory Ventilation, Less than 24 Consecutive Hours, Continuous Positive Airway Pressure (ICD-10-PCS; 2024-05-28)
PROC: 5A09357 Assistance with Respiratory Ventilation, Less than 24 Consecutive Hours, Continuous Positive Airway Pressure (ICD-10-PCS; 2024-05-29)
PROC: 5A09357 Assistance with Respiratory Ventilation, Less than 24 Consecutive Hours, Continuous Positive Airway Pressure (ICD-10-PCS; 2024-05-30)
PROC: BW241ZZ Computerized Tomography (CT Scan) of Chest and Abdomen using Low Osmolar Contrast (ICD-10-PCS; 2024-05-30)
DX: I11.0 Hypertensive heart disease with heart failure (principal); I50.23 Acute on chronic systolic (congestive) heart failure; J96.21 Acute and chronic respiratory failure with hypoxia; J44.1 Chronic obstructive pulmonary disease with (acute) exacerbation; E87.4 Mixed disorder of acid-base balance; E87.3 Alkalosis; Z20.822 Contact with and (suspected) exposure to COVID-19; E66.01 Morbid (severe) obesity due to excess calories; I48.91 Unspecified atrial fibrillation; Z68.37 Body mass index [BMI] 37.0-37.9, adult; Z99.81 Dependence on supplemental oxygen
CPT/HCPCS: 36415; 36600; 71045; 71250; 80048; 80053; 82803; 83036; 83735; 83880; 84145; 84484; 85007; 85018; 85025; 87502; 87503; 87811; 93005; 94640; 94660; 94760; 97116; 97161; 97530; 97542; 99285; A4314; A4620; G0378; J0696; J1940; J2919; J3490; J7030; J7040; Q9967